=== PATIENT | female | born 1955 | race Caucasian/White ===

== ENCOUNTER 2018-03-14 09:49 | Inpatient (IN) | payer OTHER ==
[~2018-03-14] VITALS: Ht 154.9 cm; Wt 60.8 kg
[2018-03-14] VITALS (11 sets, daily range): BP systolic 83–139; BP diastolic 48–75
--- NOTE | 2018-03-14 10:01 | NUR ---
PT AMBULATES TO BED 3
--- NOTE | 2018-03-14 10:02 | NUR ---
62 YO F BIB SELF W/ C/O VOMITING, SHARP 10/10 MEDIAL ABDOMINAL PAIN, DIZZY X 2 DAYS; DENIES DIARRHEA OR CONSTIPATION. ABD SOFT, NON-TENDER. BOWEL SOUNDS ACTIVE X 4. AAOX4, GCS 15, CMS INTACT, RR EVEN AND UNLABORED, LUNGS BL CLEAR. AMBULATORY W/ STEADY GAIT. ER MD NOTIFIED. PT NEEDS MET. SAFETY PRECAUITIONS IN PLACE. WILL CONTINUE TO MONITOR.
--- NOTE | 2018-03-14 10:18 | NUR ---
Patient being evaluated by physician at bedside.
[2018-03-14] MEDS ORDERED: KETOROLAC 30 MG/ML VIAL IVP ONE (10:35)
[2018-03-14] MEDS ORDERED: ONDANSETRON 4 MG/2 ML VIAL IVP ONE (10:35)
[2018-03-14] MEDS ORDERED: NACL 0.9% 1,000 ML IV ONE ×2 (10:35→22:30)
--- NOTE | 2018-03-14 10:52 | NUR ---
PT RETURNED FROM CT
--- NOTE | 2018-03-14 10:53 | NUR ---
LAB AT BEDSIDE AT THIS TIME
--- NOTE | 2018-03-14 11:00 | NUR ---
PT RESTING COMFOPRTABLY IN [facility] W/ VSS, RR EVEN AND UNLABORED. PT NEEDS MET. SAFETY PRECAUTIONS IN PLACE. WILL CONTINUE TO MONITOR.
[2018-03-14 11:09] LABS: BASOPHILS % (AUTO) 0.2 % (0.0-2.0); EOSINOPHILS % (AUTO) 0.1 % (0.0-4.0); HEMATOCRIT 41.3 % (36-48); HEMOGLOBIN 13.7 g/dL (12.0-16.0); LYMPHOCYTES # (AUTO) 0.9 K/uL (2.5-16.5); LYMPHOCYTES % (AUTO) 4.2 % (20.5-51.1); MEAN CORPUSCULAR HEMOGLOBIN 28 pg (27-31); MEAN CORPUSCULAR HGB CONC 33 g/dL (33-37); MEAN CORPUSCULAR VOLUME 85.1 fL (80-94); MONOCYTES # (AUTO) 1.1 K/uL (0.8-1.0); MONOCYTES % (AUTO) 5.3 % (1.7-9.3); NEUTROPHILS % (AUTO) 90.2 % (42.2-75.2); PLATELET COUNT (AUTO) 298 K/uL (140-450); RED BLOOD CELL COUNT(AUTO) 4.86 MIL/uL (4.20-5.40); RED CELL DISTRIBUTION WIDTH 13.6 % (11.6-13.7)
[2018-03-14 11:17] LABS: ANION GAP 10.5 (8-16); CARBON DIOXIDE 30.4 mmol/L (21-32); CREATININE 0.8 mg/dL (0.6-1.3); POTASSIUM 3.9 mmol/L (3.5-5.1)
[2018-03-14] MEDS ORDERED: PIPERACILLIN/TAZOBACTAM 3.375 GM in DEXTROSE 5% 50 ML IV ONE (11:20)
[2018-03-14 11:23] LABS: ALBUMIN 3.8 g/dL (3.4-5.0); TOTAL BILIRUBIN 0.9 mg/dL (0.0-1.0)
[2018-03-14 11:25] LABS: APPEARANCE,URINE SLIGHTLY CLOUDY (CLEAR); BILIRUBIN,URINE NEGATIVE (NEGATIVE); BLOOD, URINE TRACE (NEGATIVE); COLOR,URINE YELLOW (YELLOW); LEUKOCYTE ESTERASE ,URINE NEGATIVE (NEGATIVE); NITRITE, URINE NEGATIVE (NEGATIVE); PH,URINE 7.5 (5.0-9.0); UGLUCOSE NEGATIVE (NEGATIVE)
[2018-03-14 11:26] LABS: RBC,URINE 11-20 (MOD) /HPF (0-5)
[2018-03-14] MEDS ORDERED: PIPERACILLIN/TAZOBACTAM 3.375 GM VIAL IV ONE ×3 (11:28→19:44)
--- NOTE | 2018-03-14 11:28 | NUR ---
LACTIC ACID LAB VALUE RECEIVED AT THIS TIME 2.1. MICHAEL ZENG NOTIFIED
[2018-03-14] MEDS ORDERED: ACETAMINOPHEN 325 MG TAB PO PRN (11:45)
--- NOTE | 2018-03-14 11:58 | NUR ---
DAUGHTER AT BEDSIDE AT THIS TIME.
[2018-03-14] MEDS ORDERED: metroNIDAZOLE 500 MG/NS PREMIX 100 ML IV ONE (12:20)
--- NOTE | 2018-03-14 12:20 | NUR ---
PT AND FAMILY NOTIFIED THAT PATIENT IS TO REMAIN NPO PER DR GARY. PT DEMONSTRATES UNDERSTANDING.
--- NOTE | 2018-03-14 13:42 | NUR ---
PT TAKEN TO FLOOR BY RNS ANAYELI AND KRISTEN
--- NOTE | 2018-03-14 13:50 | NUR ---
Patient will be admitted to care of [facility]. Admited to Tele. Will go to room 104 B. Belongings list completed. Report to MALORIE Madera.
--- NOTE | 2018-03-14 14:15 | NUR ---
RECEIVED PATIENT FROM ER BY BEDSIDE. AOX4, ON ROOM AIR. PATIENT'S SKIN IS INTACT, V/S WITHIN NORMAL LIMITS, PATIENT IS IN STABLE CONDITION BUT STATES THAT SHE IS HAVING SEVERE PAIN ON HER ABDOMEN AREA. PATIENT IS GIVEN MORPHINE 2MG IVP AT THE TIME OF ADMISSION TO [facility]. WILL CONTINUE TO MONITOR HER PAIN. CALL LIGHT IS WITHIN REACH, BED POSITION AT THE LOWEST POSITION
[2018-03-14] MEDS: NACL 0.9% 1,000 ML IV SCH ×2 (14:17→21:44)
[2018-03-14] MEDS: MORPHINE SULFATE 4 MG/ML SYR IVP PRN ×2 (14:17→15:02)
--- NOTE | 2018-03-14 18:15 | NUR ---
PATIENT AMBULATED TO THE BATHROOM TO VOID
--- NOTE | 2018-03-14 18:22 | NUR ---
PATIENT BEING EVALUATED BY DR GARY
[2018-03-14] MEDS ORDERED: MIDAZOLAM 2 MG/2 ML VIAL ONE (18:31)
[2018-03-14] MEDS ORDERED: MEPERIDINE 50 MG/ML SYR ONE (18:32)
[2018-03-14] MEDS ORDERED: fentaNYL 0.05 MG/ML VIAL ONE (18:32)
--- NOTE | 2018-03-14 18:45 | NUR ---
PATIENT LEFT THE UNIT FOR LAP/POSSIBLE OPEN APPENDECTOMY
[2018-03-14] MEDS ORDERED: ROCURONIUM 50 MG/5 ML VIAL IV ONE (18:50)
[2018-03-14] MEDS ORDERED: SEVOFLURANE 250 ML BTL INH ONE (18:50)
[2018-03-14] MEDS ORDERED: DEXAMETHASONE 4 MG/ML VIAL ONE (18:50)
[2018-03-14] MEDS ORDERED: SUCCINYLCHOLINE CHLORIDE 200 MG/10 ML VIAL IVP ONE (18:50)
[2018-03-14] MEDS ORDERED: PROPOFOL 200 MG/20 ML VIAL IV ONE (18:50)
[2018-03-14] MEDS ORDERED: ONDANSETRON 4 MG/2 ML VIAL ONE (18:50)
[2018-03-14] MEDS ORDERED: BUPIVACAINE-MPF/EPI 0.25% 30 ML VIAL INJ ONE (19:00)
--- NOTE | 2018-03-14 19:29 | NUR ---
ENDORSED PATIENT TO EMISSIONS INSPECTOR RN. PATIENT IS STILL IN SURGERY AT THIS TIME.
[2018-03-14] MEDS ORDERED: INFLUENZA VIRUS VACCINE QUAD 0.5 ML SYR IMVAC PRN (19:30)
[2018-03-14] MEDS ORDERED: LACTATED RINGERS 1,000 ML IV SCH (19:41)
[2018-03-14] MEDS ORDERED: MEPERIDINE 25 MG/ML SYR IVP PRN (19:45)
[2018-03-14] MEDS ORDERED: ONDANSETRON 4 MG/2 ML VIAL IVP PRN (19:45)
[2018-03-14] MEDS ORDERED: diphenhydrAMINE 50 MG/ML VIAL IVP PRN (19:45)
--- NOTE | 2018-03-14 20:50 | NUR ---
PT ARRIVED FROM SURGERY IN HER BED. PT IS A/OX4, ON ROOM AIR. PT IS ABLE TO MAKE NEEDS KNOWN, ABLE TO FOLLOW COMMANDS. PT BREATHS EQUAL AND UNLABORED. PT IS S/P LA APPENDECTOMY. PT HAS A 20G IV TO RIGHT WRIST, ASYMPTOMATIC AND INTACT. PT VERBALIZED UNDERSTANDING. VITAL SIGNS WITHIN NORMAL LIMITS. PT STABLE, NO SIGNS OF DISTRESS NOTED AT THIS TIME. BED IN LOWEST POSITION, BED ALARM ON. CALL LIGHT WITHIN REACH, WILL CONTINUE TO MONITOR.
[2018-03-14] MEDS ORDERED: PIPER/TAZO 3.375GM/D5W PREMIX 50 ML IV SCH (21:00)
[2018-03-14] MEDS ORDERED: PIPERACILLIN/TAZOBACTAM 3.375 GM in DEXTROSE 5% 50 ML IV SCH (21:00)
--- NOTE | 2018-03-14 22:10 | NUR ---
SPOKE TO DR MARTIN ABOUT PT BLOOD PRESSURE BEING LOW EVEN IN [place] POSITION. DR ORDERED 1L BOLUS NS.
--- NOTE | 2018-03-14 23:34 | NUR ---
RECEIVED REPORT FROM RNERAN, AT PT BEDSIDE. PT IS IN STABLE CONDITION. PT IS AAOX4. PT IS ON RA. IV ACCESS IN R WRIST 20G WITH IVF RUNNING PER MD ORDERS. IV IS PATENT AND INTACT. PT IS POST STATUS LAP APPENDECTOMY HAS THREE INCISIONS ON ABDOMEN. DRESSING ARE DRY AND INTACT. BED IS LOCKED, LOW POSITION WITH SIDE RAILS UP X2. BOARD UPDATED. CALL LIGHT IS WITHIN REACH. WILL CONTINUE TO MONITOR.
--- NOTE | 2018-03-14 23:34 | NUR ---
ENDORSED PT TO MALORIE PICKARD. PT IN STABLE CONDITION.
[2018-03-15] VITALS (7 sets, daily range): BP systolic 92–181; BP diastolic 55–85
[2018-03-15] MEDS: PIPER/TAZO 3.375GM/D5W PREMIX 50 ML IV SCH ×4 (00:52→17:20)
--- NOTE | 2018-03-15 00:52 | NUR ---
ADMINISTERED SCHEDULED MEDICATION. PT IS TOLERATING WELL. PT IS C/O PAIN WILL GIVE PAIN MEDICATION. WILL CONTINUE TO MONITOR.
--- NOTE | 2018-03-15 01:15 | NUR ---
RECEIVED REPORT FOR NEERAJ ESPANA. PT IS A&O X4. PT ON ROOM AIR. NO SOB. PT S/P LAP APPENDECTOMY HAS THREE INCISIONS ON ABDOMEN. DRESSINGS ARE CLEAN DRY AND INTACT. PT COMPLAIN OF SOME PAIN. B/P IS ON THE LOWER SIDE. WILL MEDICATE AND MONITOR. SAFETY MEASURES ARE IN PLACE. PLAN OF CARE REVIEWED WITH PT.
--- NOTE | 2018-03-15 01:15 | NUR ---
ENDORSED PT TO MALORIE BAÑUELOS FOR CONTINUTIY OF CARE. PT IN STABLE CONDITION.
[2018-03-15] MEDS: MORPHINE SULFATE 4 MG/ML SYR IVP PRN ×6 (01:48→20:26)
--- NOTE | 2018-03-15 02:45 | NUR ---
PT STATES RELIEF OF PAIN. VS ARE WITHIN NORMAL LIMITS. PT STABLE. SAFETY MEASURES IN PLACE WILL CONTINUE TO MONITOR.
--- NOTE | 2018-03-15 04:07 | NUR ---
PT SLEEPING IN BED NO DISTRESS NOTED. WILL CONTINUE TO MONITOR
[2018-03-15] MEDS: NACL 0.9% 1,000 ML IV SCH ×2 (05:52→17:00)
--- NOTE | 2018-03-15 06:00 | NUR ---
DUE MEDICATION GIVEN PT TOLERATED WELL. SAFETY MEASURES IN PLACE.
[2018-03-15 07:14] LABS: HEMATOCRIT 33.1 % (36-48); HEMOGLOBIN 10.9 g/dL (12.0-16.0); LYMPHOCYTES # (AUTO) 0.4 K/uL (2.5-16.5); LYMPHOCYTES % (AUTO) 2.9 % (20.5-51.1); MEAN CORPUSCULAR HEMOGLOBIN 29 pg (27-31); MEAN CORPUSCULAR HGB CONC 33 g/dL (33-37); MEAN CORPUSCULAR VOLUME 86.7 fL (80-94); MONOCYTES # (AUTO) 0.8 K/uL (0.8-1.0); MONOCYTES % (AUTO) 5.7 % (1.7-9.3); NEUTROPHILS # (AUTO) 12.3 K/uL (1.8-7.7); NEUTROPHILS % (AUTO) 91.4 % (42.2-75.2); PLATELET COUNT (AUTO) 191 K/uL (140-450); RED BLOOD CELL COUNT(AUTO) 3.82 MIL/uL (4.20-5.40); RED CELL DISTRIBUTION WIDTH 14.4 % (11.6-13.7); WHITE BLOOD COUNT (AUTO) 13.4 K/uL (4.8-10.8)
--- NOTE | 2018-03-15 07:22 | NUR ---
ASSUMED CONTINUITY OF CARE. NO SIGNS AND SYMPTOMS OF ACUTE DISTRESS NOTED. INITIAL ASSESSMENT DONE. KEEP COMFORTABLE ON BED. EXPLAINED DIAGNOSIS, PLAN OF CARE, PAIN MANAGEMENT TEACHING, INCISION CARE, DIET, USE OF CALL LIGHT/BED/TV/BATHROOM. VERBALIZED UNDERSTANDING. CALL LIGHT WITHIN REACH.
--- NOTE | 2018-03-15 07:22 | NUR ---
ENDORSED PT TO STACI SIMMS. PT IN STABLE CONDITION. SAFETY MEASURES IN PLACE
--- NOTE | 2018-03-15 07:30 | NUR ---
Patient's Plan of Care was discussed and reviewed with FURNACE KEEPER: RHONDA.
[2018-03-15 07:31] LABS: ALBUMIN 2.4 g/dL (3.4-5.0); ANION GAP 13.7 (8-16); CARBON DIOXIDE 24.2 mmol/L (21-32); CREATININE 0.7 mg/dL (0.6-1.3); POTASSIUM 3.9 mmol/L (3.5-5.1); TOTAL BILIRUBIN 2.1 mg/dL (0.0-1.0)
[2018-03-15] MEDS: PANTOPRAZOLE 40 MG INJ VIAL IVP SCH (08:45)
--- NOTE | 2018-03-15 10:05 | NUR ---
WENT TO BATHROOM WITH ASSISTANCE FROM PT. . TOLERATED WELL. NO SOB, NOTED.
--- NOTE | 2018-03-15 15:20 | NUR ---
DR. ZAFAR CAME AND SPOKE TO PT. AT BEDSIDE.
--- NOTE | 2018-03-15 16:00 | NUR ---
INFORMED DR. ZAFAR ABOUT LATEST VS ESPECIALLY BP 172/78. PER. DR. ZAFAR, JUST GIVE MORPHINE 4 MG IVP PRN. ALSO INFORMED CHARGE NURSE SHAUN RAPHAEL -MALORIE.
--- NOTE | 2018-03-15 19:05 | NUR ---
DR. GARY CAME AND SPOKE TO PT. AND PT. DAUGHTER AT BEDSIDE.
--- NOTE | 2018-03-15 19:20 | NUR ---
REPORT RECEIVED FROM MENDEZ SMALL AT BEDSIDE FOR CONTINUITY OF CARE, PT IN STABLE CONDITION.
--- NOTE | 2018-03-15 19:20 | NUR ---
BEDSIDE REPORT GIVEN TO JOSEFA VILA. IVF INFUSING WELL. IN STABLE CONDITION.
[2018-03-15] MEDS: hydrALAZINE 20 MG/ML VIAL IVP PRN (20:19)
[2018-03-15] MEDS: ONDANSETRON 4 MG/2 ML VIAL IVP PRN (20:31)
--- NOTE | 2018-03-15 21:30 | NUR ---
PT IN BED WITH N/S INFUSING AT 100, IV SITE INTACT AND ASYMPTOMATIC. PT LUNG SOUNDS CLEAR AND BS SOUNDS PRESENT BUT HYPOACTIVE. PT 3 DRESSINGS ON ABD INTACT WITH NO DRAINAGE NOTED. PT C/O 8/10 PAIN IN ABDOMEN AND NAUSEA WELL. PT V/S FOLLOWS T 98.8 P 78 R 18 B/P 181/85 02 93 WITH R/A. PT GIVEN PRN APRESOLINE 20MG PRN/IVP FOR B/P SYSTOLICALLY OVER 160. PT ALSO GIVEN MORPHINE 4MG VIA IVP FOR C/O OF ABD PAIN 8/10 AND AND ZOFRAN PRN /IVP FOR C/O OF NAUSEA. WILL MONITOR EFFECT OF PRN MEDICATIONS. FAMILY AT BEDSIDE AT THIS TIME.
--- NOTE | 2018-03-15 22:30 | NUR ---
PT SLEEPING POSITIVE EFFECTS OF PRN MEDICATION.
[2018-03-16] VITALS: BP 155/75
--- NOTE | 2018-03-16 | NUR ---
V/S T 98.5 P 78 R 18 B/P 155/75 02 92. POSITIVE EFFECT OF PRN PAIN MED.
[2018-03-16] MEDS: PIPER/TAZO 3.375GM/D5W PREMIX 50 ML IV SCH ×4 (00:47→17:24)
[2018-03-16] MEDS: MORPHINE SULFATE 4 MG/ML SYR IVP PRN ×6 (01:22→21:58)
--- NOTE | 2018-03-16 02:00 | NUR ---
PT SLEEPING NO S/S OF PAIN OR DISTRESS NOTED. BED LOW AND SIDE RAAILS UP X2 IV FLUSHED PATENT
[2018-03-16] MEDS: NACL 0.9% 1,000 ML IV SCH ×3 (03:44→23:44)
[2018-03-16 04:00] VITALS: BP 154/74
--- NOTE | 2018-03-16 05:30 | NUR ---
PT C/O 7/10 PAIN GIVEN PRN MORPHINE FOR PAIN IN ABD. DENITA ON ABD INTACT WITH MINIMAL DRAINAGE V/S FOLLOWS T 99.4 P 76 R 18 B/P 154/74 02 96 P 76.
--- NOTE | 2018-03-16 07:15 | NUR ---
REPORT GIVEN TO RN DAYSHIFT AT BEDSIDE FOR CONTINUITYU OF CARE, PT IN STABLE CONDITION.
--- NOTE | 2018-03-16 07:15 | NUR ---
ASSUMED CONTINUITY OF CARE. NO SIGNS AND SYMPTOMS OF ACUTE DISTRESS NOTED. INITIAL ASSESSMENT DONE. KEEP COMFORTABLE ON BED. EXPLAINED DIAGNOSIS, PLAN OF CARE, PAIN MANAGEMENT TEACHING, INCISION CARE, AMBULATION ENCOURAGEMENT, USE OF CALL LIGHT/BED/TV/BATHROOM. VERBALIZED UNDERSTANDING. CALL LIGHT WITHIN REACH.
[2018-03-16 07:32] LABS: BASOPHILS % (AUTO) 0.2 % (0.0-2.0); EOSINOPHILS % (AUTO) 0.1 % (0.0-4.0); HEMATOCRIT 34.7 % (36-48); HEMOGLOBIN 11.4 g/dL (12.0-16.0); LYMPHOCYTES # (AUTO) 0.7 K/uL (2.5-16.5); LYMPHOCYTES % (AUTO) 7.3 % (20.5-51.1); MEAN CORPUSCULAR HEMOGLOBIN 28 pg (27-31); MEAN CORPUSCULAR HGB CONC 33 g/dL (33-37); MEAN CORPUSCULAR VOLUME 86.3 fL (80-94); MONOCYTES # (AUTO) 0.4 K/uL (0.8-1.0); MONOCYTES % (AUTO) 4.3 % (1.7-9.3); NEUTROPHILS # (AUTO) 8.3 K/uL (1.8-7.7); NEUTROPHILS % (AUTO) 88.1 % (42.2-75.2); PLATELET COUNT (AUTO) 206 K/uL (140-450); RED BLOOD CELL COUNT(AUTO) 4.02 MIL/uL (4.20-5.40); RED CELL DISTRIBUTION WIDTH 14.3 % (11.6-13.7); WHITE BLOOD COUNT (AUTO) 9.4 K/uL (4.8-10.8)
[2018-03-16 07:59] LABS: ALBUMIN 2.2 g/dL (3.4-5.0); CARBON DIOXIDE 26.4 mmol/L (21-32); CREATININE 0.7 mg/dL (0.6-1.3); POTASSIUM 3.4 mmol/L (3.5-5.1); TOTAL BILIRUBIN 1.4 mg/dL (0.0-1.0)
[2018-03-16 08:00] VITALS: BP 153/67
[2018-03-16] MEDS: PANTOPRAZOLE 40 MG INJ VIAL IVP SCH (08:52)
--- NOTE | 2018-03-16 11:00 | NUR ---
SEEN WATCHING TV AT THIS TIME. NO DISCOMFORT NOTICED. PT. DAUGHTER AT BEDSIDE.
[2018-03-16 12:00] VITALS: BP 140/59
--- NOTE | 2018-03-16 14:29 | NUR ---
DR. ZAFAR CAME AND SPOKE TO PT. AND PT. DAUGHTER AT BEDSIDE. PER DR. ZAFAR, MAYBE D/C TOMORROW 03/17/18. INFORMED CHARGE NURSE SHAUN RIVERA -MLAORIE.
[2018-03-16 16:00] VITALS: BP 157/80
--- NOTE | 2018-03-16 16:49 | NUR ---
03/16/18 RD INITIAL ASSESSMENT COMPLETED PLEASE REFER TO NUTRITION ASSESSMENT UNDER CARE ACTIVITY FOR ESTIMATED NUTRITIONAL NEEDS. RD RECOMMENDATIONS: 1. RECOMMEND CONTINUE FULL LIQUID DIET 2. RECOMMEND ADVANCE DIET TOLERATED AND MEDICALLY CLEARED TO SOFT THEN 2G NA DIET 3. F/U 3-5 DAYS; MODERATE RISK NAHUM BAXTER MBA, RD
[2018-03-16] MEDS ORDERED: POTASSIUM CHLORIDE 10 MEQ TABER PO SCH (18:15)
--- NOTE | 2018-03-16 19:14 | NUR ---
REPORT GIVEN TO JOSEFA VILA. IVF INFUSING WELL. IN STABLE CONDITION.
--- NOTE | 2018-03-16 19:20 | NUR ---
RECEIVED REPORT FROM MENDEZ SMALL DAYSWYFT NURSE AT BEDSIDE FOR CONTINUITY OF CARE, PT IN STABLE CONDITION.
[2018-03-16 20:00] VITALS: BP 212/99
[2018-03-16] MEDS: hydrALAZINE 20 MG/ML VIAL IVP PRN (20:12)
--- NOTE | 2018-03-16 20:15 | NUR ---
PT LYING IN BED WITH C/O OF ABD PAIN. PT ALSO HAD C/O OF NAUSEA AND REFLUX PT SPIT UP BILE LOOKING FLUID X2 AND ASKED FOR PRN FOR GAS AND NAUSEA. PT GIVEN MORPHINE 0.5ML/2MG WELL ZOFRAN AND MYLICAN AND APPRESOLINE FOR ELEVATED B/P. V/S FOLLOWS T 98.6 P 81 R 18 B/P 212/99 02 95 WITH R/A. WILL MONITOR EFECT OF PRNS.
[2018-03-16] MEDS: ONDANSETRON 4 MG/2 ML VIAL IVP PRN (20:16)
[2018-03-16] MEDS: SIMETHICONE 80 MG TAB.CHEW PO PRN (20:19)
--- NOTE | 2018-03-16 22:00 | NUR ---
PT IN LOW BED WITH SIDE RAILS UP X2 N/S RUNNING AT 100 IV SITE ASYMPTOMATIC AND FLUSHED PATENET. PT LUNG SOUNDS CLEAR BUT ABD BOWEL SOUNDS ARE HYPOACTIVE AND SLUGGISH. PT C/O 7/10 PAIN, PT MORPHINE 2MG ORDER FOR PAIN WHICH WAS GIVEN AT 2006 NOT EFFECTIVE. PT GIVEN ANOTHER DOSE OF MORPHINE FOR SEVERE PAIN.
--- NOTE | 2018-03-16 23:00 | NUR ---
B/P REASSESSED LATEST B/P IS 147/81. POSITIVE EFFECT OF MILICAN AND ZOFRAN. PT PASSED GAS X2 WITH NO C/O OF NAUSEA.
--- NOTE | 2018-03-16 23:30 | NUR ---
SPOKE WITH DR. GARY REGARDING THE PAIN AND REFLUX OF PT. DR. GARY ORDERED XRAY AND CT OF ABDOMEN AT 0600. PT MADE AWARE.
[2018-03-17] VITALS: BP 155/74
--- NOTE | 2018-03-17 | NUR ---
PT IN BED SLEEPING NO S/S OF PAIN OR DISTRESS NOTED. V/S FOLLOWS T 98.7 P 87 R 18 B/P 155/74 02 94%.
[2018-03-17] MEDS: PIPER/TAZO 3.375GM/D5W PREMIX 50 ML IV SCH ×4 (00:34→17:32)
--- NOTE | 2018-03-17 02:00 | NUR ---
PT RESTING IN BED BED LOW SIDE RAILS UP X2 AND BED IN LOW POSITION.
--- NOTE | 2018-03-17 03:04 | NUR ---
RECEIVED PT FROM JL RN PT DUTCH SPEAKER AAOX4 AMBULATOY IV ONLEFT HAD INFUSING WELL ON TELMETRY SR, S/P LAP APPY 3 SMALL CUT WITH DENITA ON ABD INITIAL ASSESSMENT DONE
[2018-03-17] MEDS: MORPHINE SULFATE 4 MG/ML SYR IVP PRN ×4 (03:05→17:32)
[2018-03-17 04:00] VITALS: BP 15/78
--- NOTE | 2018-03-17 04:15 | NUR ---
POSITIVE EFFECT OF MORPHINE, PT ASLEEP NO S/S OF PAIN OR DISTRESS NOTED.
--- NOTE | 2018-03-17 05:00 | NUR ---
PT GIVEN ZOSYN IV ABT NO ADVERSE EFFECTS NOTED. V/S FOLLOWS T 99.2 P 84 R 18 B/P IS 158/78. 02 93 WITH R/A
--- NOTE | 2018-03-17 05:12 | NUR ---
LAB DRAWS AT BEDSIDE
--- NOTE | 2018-03-17 06:15 | NUR ---
NEW IV SITE PROVIDED ON LEFT HAND 24 G. RIGHT HAND IV SITE INFILTRATED. NEW SITE ASYMPTOMATIC AND FLUSHES PATENT.
--- NOTE | 2018-03-17 06:52 | NUR ---
TAINA ESCORTED PT TO PERFORM THE CT OF ABDOMEN.
[2018-03-17 07:00] LABS: BASOPHILS % (AUTO) 0.1 % (0.0-2.0); HEMOGLOBIN 11.7 g/dL (12.0-16.0); LYMPHOCYTES # (AUTO) 0.5 K/uL (2.5-16.5); LYMPHOCYTES % (AUTO) 3.8 % (20.5-51.1); MEAN CORPUSCULAR HEMOGLOBIN 29 pg (27-31); MEAN CORPUSCULAR HGB CONC 33 g/dL (33-37); MEAN CORPUSCULAR VOLUME 85.3 fL (80-94); MONOCYTES # (AUTO) 0.6 K/uL (0.8-1.0); MONOCYTES % (AUTO) 4.8 % (1.7-9.3); NEUTROPHILS # (AUTO) 12.2 K/uL (1.8-7.7); NEUTROPHILS % (AUTO) 91.3 % (42.2-75.2); PLATELET COUNT (AUTO) 250 K/uL (140-450); RED CELL DISTRIBUTION WIDTH 14.2 % (11.6-13.7); WHITE BLOOD COUNT (AUTO) 13.4 K/uL (4.8-10.8)
[2018-03-17 07:14] LABS: ALBUMIN 1.7 g/dL (3.4-5.0); ANION GAP 11.9 (8-16); CARBON DIOXIDE 26.2 mmol/L (21-32); CREATININE 0.5 mg/dL (0.6-1.3); POTASSIUM 3.1 mmol/L (3.5-5.1); TOTAL BILIRUBIN 1.1 mg/dL (0.0-1.0)
--- NOTE | 2018-03-17 07:20 | NUR ---
GAVE REPORT TO JL ESPANA DAYSHIFT NURSE FOR CONTINUITY OF CARE, PT IN STABLE CONDITION.
--- NOTE | 2018-03-17 07:21 | NUR ---
RECEIVED REPORT FROM THE MAINTENANCE SHOP WELDER NURSE AT BEDSIDE FOR CONTINUITY OF CARE. PT IS AWAKE, ORIENTED, AND AMBULATING. SPOUSE AT BEDSIDE. INTRODUCED MYSELF AND UPDATED THE BOARD. PT IS C/O PAIN. V/S: BP IS HIGH. ALL ELSE UNREMARKABLE. PAIN 12/20. WILL CHECK LAST MED TIME. SKIN- 3 ABD INCISIONS, S/P LAP APPY 03/14. DENITA IN PLACE. CLEAN AND DRY, OIL CHANGE TECHNICIAN. LBM 03/[address] WAS DONE THIS MORNING. POSTOP ILEUS. IV ON L HAND 20G NS AT 100ML. WILL CONTINUE TO MONITOR PT.
[2018-03-17 08:00] VITALS: BP 165/80
[2018-03-17] MEDS: PANTOPRAZOLE 40 MG INJ VIAL IVP SCH (08:42)
[2018-03-17] MEDS: hydrALAZINE 20 MG/ML VIAL IVP PRN ×2 (08:43→21:02)
[2018-03-17] MEDS: ENOXAPARIN 40 MG/0.4 ML SYR SUBQ SCH (08:44)
[2018-03-17] MEDS: ONDANSETRON 4 MG/2 ML VIAL IVP PRN (08:46)
--- NOTE | 2018-03-17 08:54 | NUR ---
ADMINISTERED MORNING MEDS, HYDRALAZINE FOR HIGH BP, MORPHINE FOR PAIN, AND ZOFRAN FOR NAUSEA. PT TOLERATED WELL. WILL CONTINUE TO MONITOR PT.
[2018-03-17] MEDS: NACL 0.9% 1,000 ML IV SCH ×2 (09:44→15:17)
--- NOTE | 2018-03-17 09:45 | NUR ---
REASSESSED BP. 129/66. PT SLEEPING. FAMILY AT BEDSIDE. WILL CONTINUE TO MONITOR PT.
--- NOTE | 2018-03-17 11:00 | NUR ---
PT SLEEPING. FAMILY AT BEDSIDE. NO SIGNS OF DISTRESS. ASKED FAMILY TO REMIND PT TO AMBULATE OFTEN.
[2018-03-17 12:00] VITALS: BP 142/73
--- NOTE | 2018-03-17 13:57 | NUR ---
DR ZAFAR HERE TO ASSESS PT.
[2018-03-17] MEDS ORDERED: POTASSIUM CHLORIDE 10 MEQ TABER PO SCH (14:00)
--- NOTE | 2018-03-17 15:11 | NUR ---
PT AMBULATING IN THE [place] WAY WITH FAMILY. NO SIGN OF DISTRESS. WILL CONTINUE TO MONITOR PT.
[2018-03-17 16:00] VITALS: BP 148/70
[2018-03-17] MEDS: SIMETHICONE 80 MG TAB.CHEW PO PRN (17:32)
--- NOTE | 2018-03-17 17:35 | NUR ---
ADMINISTERED PAIN MED AND SIMETHICONE AND ZOSYN. PT TOLERATED WELL. WILL CONTINUE TO MONITOR PT.
--- NOTE | 2018-03-17 19:23 | NUR ---
ENDORSED PT TO THE ENGINEERING TECHNICAL WRITER NURSE AT BEDSIDE FOR CONTINUITY OF CARE. PT IS IN STABLE CONDITION.
--- NOTE | 2018-03-17 19:25 | NUR ---
PT MALTESE SPEAKER AAOX4 NOT DISTRESS NOTED RELATIVE AT BED SIDE.
--- NOTE | 2018-03-17 19:25 | NUR ---
RECEIVED PT FROM JL RN PT AAOX4 AMBULATORY ON TELE SR S/P LAP APPY 3 SMALL INCISION ON ABD WITH DENITA INITIAL ASSESSMENT DONE
[2018-03-17 20:00] VITALS: BP 168/77
[2018-03-17] MEDS: HYDROmorphone 1 MG/ML AMP IVP PRN (20:58)
--- NOTE | 2018-03-17 22:00 | NUR ---
AFTER PAIN MEDIC GIVEN PT SLEEP S QUIET NOT DISTRESS NOTED PT HAS BEENPASSING GAS
[2018-03-18] VITALS: BP 140/63
[2018-03-18] MEDS: PIPER/TAZO 3.375GM/D5W PREMIX 50 ML IV SCH ×3 (00:56→11:55)
[2018-03-18] MEDS: NACL 0.9% 1,000 ML IV SCH (00:56)
[2018-03-18 04:00] VITALS: BP 140/80
--- NOTE | 2018-03-18 04:00 | NUR ---
SPONGE BATH GIVEN LINEN CHANGED ON TELE SR IV ON LEFT HAND INFUSING WELL
[2018-03-18] MEDS: HYDROmorphone 1 MG/ML AMP IVP PRN (04:21)
--- NOTE | 2018-03-18 06:30 | NUR ---
PT SLEEPING WELL AFTER PAIN MEDIC GIVEN
--- NOTE | 2018-03-18 07:00 | NUR ---
PT VERBALIZED TO HAVE A BOWEL MOV ANDPT IS ENDORSED TO ESTER LEONEOR CONTINUITY OF CARE.
--- NOTE | 2018-03-18 07:01 | NUR ---
RECEIVED REPORT FROM PULL TAB DEALER NURSE. PATIENT LYING DOWN IN BED SLEEPING, AROUSABLE BY VOICE. NO DISTRESS NOTED. PATIENT COMPLAINS OF ABD PAIN. WILL MEDICATE PER ORDERS. LUNGS CTA ON ALL LOBES. PATIENT REPORTS HAVING A SMALL BM ABOUT 30 MIN AGO THIS MORNING. PATIENT ALREADY VOIDED, AMBULATING WELL. REVIEWED PLAN OF CARE WITH PATIENT. PATIENT VERBALIZED UNDERSTANDING. SAFETY MEASURES IN PLACE, CALL LIGHT WITHIN REACH. WILL CONTINUE TO MONITOR.
[2018-03-18 07:28] LABS: BASOPHILS % (AUTO) 0.2 % (0.0-2.0); EOSINOPHILS % (AUTO) 0.1 % (0.0-4.0); HEMATOCRIT 32.9 % (36-48); HEMOGLOBIN 10.8 g/dL (12.0-16.0); LYMPHOCYTES # (AUTO) 0.5 K/uL (2.5-16.5); LYMPHOCYTES % (AUTO) 4.2 % (20.5-51.1); MEAN CORPUSCULAR HEMOGLOBIN 28 pg (27-31); MEAN CORPUSCULAR HGB CONC 33 g/dL (33-37); MEAN CORPUSCULAR VOLUME 85.3 fL (80-94); MONOCYTES # (AUTO) 0.7 K/uL (0.8-1.0); NEUTROPHILS # (AUTO) 10.7 K/uL (1.8-7.7); NEUTROPHILS % (AUTO) 89.5 % (42.2-75.2); PLATELET COUNT (AUTO) 270 K/uL (140-450); RED BLOOD CELL COUNT(AUTO) 3.86 MIL/uL (4.20-5.40); RED CELL DISTRIBUTION WIDTH 14.2 % (11.6-13.7); WHITE BLOOD COUNT (AUTO) 11.9 K/uL (4.8-10.8)
[2018-03-18 07:57] LABS: ALBUMIN 1.9 g/dL (3.4-5.0); ANION GAP 12.1 (8-16); CARBON DIOXIDE 27.3 mmol/L (21-32); CREATININE 0.5 mg/dL (0.6-1.3); POTASSIUM 3.4 mmol/L (3.5-5.1)
[2018-03-18 08:00] VITALS: BP 161/83
[2018-03-18] MEDS: MORPHINE SULFATE 4 MG/ML SYR IVP PRN (09:30)
[2018-03-18] MEDS: PANTOPRAZOLE 40 MG INJ VIAL IVP SCH (09:30)
[2018-03-18] MEDS: ONDANSETRON 4 MG/2 ML VIAL IVP PRN (09:30)
[2018-03-18] MEDS: ENOXAPARIN 40 MG/0.4 ML SYR SUBQ SCH (09:42)
--- NOTE | 2018-03-18 09:43 | NUR ---
PATIENT SITTING AT BEDSIDE CHAIR. NO DISTRESS NOTED. COMPLAINS OF PAIN. MORPHINE GIVEN PER MD ORDERS. SCHEDULED MEDICATIONS DUE GIVEN. SAFETY MEASURES IN PLACE, CALL LIGHT WITHIN REACH. WILL CONTINUE TO MONITOR.
--- NOTE | 2018-03-18 11:58 | NUR ---
PATIENT SITTING IN BED WITH FAMILY MEMBER AT BEDSIDE. NO DISTRESS NOTED. PAIN WITHIN TOLERABLE. SCHEDULED MEDICATIONS DUE GIVEN. SAFETY MEASURES IN PLACE, CALL LIGHT WITHIN REACH. WILL CONTINUE TO MONITOR.
[2018-03-18 12:00] VITALS: BP 156/73
[2018-03-18] MEDS ORDERED: HYDROcodone/APAP 5/325 MG 1 TAB TAB PO PRN (12:10)
[2018-03-18] MEDS ORDERED: POTASSIUM CHLORIDE 10 MEQ TABER PO SCH (13:00)
--- NOTE | 2018-03-18 13:06 | NUR ---
PATIENT SITTING IN BEDSIDE CHAIR. NO DISTRESS NOTED. PAIN WITHIN TOLERABLE. SCHEDULED MEDICATIONS DUE GIVEN. WILL CONTINUE TO MONITOR.
--- NOTE | 2018-03-18 15:47 | NUR ---
PATIENT DISCHARGE INSTRUCTIONS PROVIDED TO PATIENT/ AT BEDSIDE IN PREFERRED LANGUAGE OF TURKMEN WITH CLUB ROOM ATTENDANT #:[id number]. FOLLOW-UP INSTRUCTIONS WITH SURGEON AND PCP PROVIDED, HOME PRESCRIPTIONS PROVIDED AND GIVEN TO PATIENT. ANSWERED ALL OF PATIENT'S QUESTIONS REGARDING DISCHARGE. PROVIDED WOUND CARE MANAGEMENT AT HOME INSTRUCTIONS. PATIENT/ VERBALIZED COMPLETE UNDERSTANDING. IV SITE REMOVED WITH MINIMAL BLOOD AND LUMEN COMPLETELY INTACT. ID BANDS REMOVED. AWAITING FOR PATIENT TO GET DRESSED. WILL CONTINUE TO MONITOR.
--- NOTE | 2018-03-18 16:00 | NUR ---
PATIENT ALL DRESSED AND READY TO GO HOME. ESCORTED PATIENT DOWN TO LOBBY VIA WHEELCHAIR. PATIENT DISCHARGED TO HOME IN PRIVATE VEHICLE AT THIS TIME.
== END 2018-03-18 16:00 | disposition home or self-care (01) | DRG 710 ==
LOC: MED 09:49 → MTU 11:47
PROVIDERS: ADMIT Hospitalist; ATTEND Hospitalist
PROC: 0WQF4ZZ Repair Abdominal Wall, Percutaneous Endoscopic Approach (ICD-10-PCS; 2018-03-14)
PROC: 3E02340 Introduction of Influenza Vaccine into Muscle, Percutaneous Approach (ICD-10-PCS; 2018-03-14)
PROC: 0DTJ4ZZ Resection of Appendix, Percutaneous Endoscopic Approach (ICD-10-PCS; principal; 2018-03-14 18:15)
DX: A41.9 Sepsis, unspecified organism (principal); K35.33 Acute appendicitis with perforation, localized peritonitis, and gangrene, with abscess; K42.9 Umbilical hernia without obstruction or gangrene; I10 Essential (primary) hypertension; E78.5 Hyperlipidemia, unspecified; Z82.49 Family history of ischemic heart disease and other diseases of the circulatory system; Z23 Encounter for immunization
CPT/HCPCS: 36415; 74018; 80053; 81001; 82374; 83605; 83690; 85025; 87040; 87081; 87086; 90658; 93005; 96365; 96367; 96375; 99285; C9113; J0330; J0360; J1100; J1170; J1650; J1885; J2175; J2250; J2270; J2405; J2543; J2704; J3010; J3490; J7030; J7060

== ENCOUNTER 2020-12-12 22:22 | Emergency (ER) | payer OTHER, MEDICAID ==
[~2020-12-12] VITALS: Ht 160 cm; Wt 59.0 kg
[2020-12-12 22:50] VITALS: BP 157/76
--- NOTE | 2020-12-12 22:53 | NUR ---
TO LOBBY A/W BED AMBULATORY
[2020-12-12 23:42] LABS: BASOPHILS % (AUTO) 0.4 % (0.0-2.0); EOSINOPHILS # (AUTO) 0.1 K/uL (0-0.4); EOSINOPHILS % (AUTO) 0.9 % (0.0-4.0); HEMATOCRIT 37.1 % (36-48); HEMOGLOBIN 12.6 g/dL (12.0-16.0); LYMPHOCYTES # (AUTO) 1.6 K/uL (2.5-16.5); LYMPHOCYTES % (AUTO) 20.6 % (20.5-51.1); MEAN CORPUSCULAR HEMOGLOBIN 30 pg (27-31); MEAN CORPUSCULAR HGB CONC 34 g/dL (33-37); MEAN CORPUSCULAR VOLUME 87.9 fL (80-94); MONOCYTES # (AUTO) 0.6 K/uL (0.8-1.0); MONOCYTES % (AUTO) 7.3 % (1.7-9.3); NEUTROPHILS # (AUTO) 5.5 K/uL (1.8-7.7); NEUTROPHILS % (AUTO) 70.8 % (42.2-75.2); PLATELET COUNT (AUTO) 285 K/uL (140-450); RED BLOOD CELL COUNT(AUTO) 4.23 MIL/uL (4.20-5.40); RED CELL DISTRIBUTION WIDTH 13.6 % (11.6-13.7); WHITE BLOOD COUNT (AUTO) 7.7 K/uL (4.8-10.8)
--- NOTE | 2020-12-12 23:45 | NUR ---
PT. IS A 65 Y/O FEMALE THAT CAME INTO ED WITH C/O OF CHEST PAIN. PT. STATES IT STARTED YESTERDAY AND IT IS MAINLY ON THE LEFT SIDE. DENIES N/V/D/FEVER. PT. RATES PAIN 8/10 ON THE PAIN SCALE AT THIS TIME. SKIN IS PINK/WARM/DRY; AAOX4 WITH EVEN AND STEADY GAIT; HR EVEN AND REGULAR; PT DENIES ANY FEVER, CP, SOB, OR COUGH AT THIS TIME; VSS; PATIENT POSITIONED FOR COMFORT WITH DAUGHTER AT BEDSIDE; HOB ELEVATED; BEDRAILS UP X2; BED DOWN. ER MD MADE AWARE OF PT STATUS. PMH: HTN ALLERGES: NKA
--- NOTE | 2020-12-12 23:50 | NUR ---
XRAY AT BEDSIDE
[2020-12-12 23:52] LABS: ANION GAP 11.2 (8-16); CREATININE 0.6 mg/dL (0.6-1.3); POTASSIUM 4.2 mmol/L (3.5-5.1)
[2020-12-13] MEDS ORDERED: IBUPROFEN 600 MG TAB PO ONE (01:05)
--- NOTE | 2020-12-13 01:25 | NUR ---
NGUYỄN DICKINSON AT BEDSIDE
[2020-12-13 01:35] VITALS: BP 155/74
--- NOTE | 2020-12-13 01:35 | NUR ---
Patient discharged with v/s stable. Written and verbal after care instructions given and explained. Patient verbalized understanding. Ambulatory with steady gait. All questions addressed prior to discharge. Advised to follow up with PMD.
== END 2020-12-13 01:35 | disposition home or self-care (01) ==
LOC: MED 22:22
DX: R07.89 Other chest pain (principal); F43.9 Reaction to severe stress, unspecified; Z00.01 Encounter for general adult medical examination with abnormal findings
CPT/HCPCS: 36415; 71045; 80048; 84484; 85025; 85379; 93005; 99285